=== PATIENT | female | born 2000 | race Asian ===

== ENCOUNTER 2024-09-29 08:11 | Outpatient (REF) | payer OTHER, SELFPAY ==
--- NOTE | ~2024-09-29 | US_ITS ---
EXAMINATION: US PELVIS CLINICAL INFORMATION: Heavy menstruation. Lower abdominal pain. COMPARISON: None available. TECHNIQUE: Ultrasound of the pelvis is performed using both transabdominal and transvaginal transducers along with Doppler. Transvaginal imaging is performed due to inadequate visualization transabdominally. FINDINGS: Uterus: The uterus is anteverted , anteflexed and measures 7.7 x 3.7 x 4.1 cm. The double wall endometrial thickness is 0.64 cm. The uterus is smooth in contour and has normal myometrial echogenicity. No visible fibroid. Adnexa: Both ovaries are visualized. There is normal color flow to the adnexa. There is no ovarian torsion. There is no pelvic ascites or fluid collection. Right ovary measures 2.8 x 1.8 x 1.9 cm. Volume 5.0 mL. No focal lesion seen Left ovary measures 2.4 x 1.2 x 2.5 cm. Volume 3.8 mL . There is anechoic cyst measuring 2.3 x 2.1 x 1.9 cm. There is no free fluid in cul-de-sac. US/US pelvic and transvaginal IMPRESSION: Unremarkable uterus and right ovary. Simple cyst left ovary. Electronically signed by: Jayson Barnett MD 09/29/2024 04:13 PM EST
== END 2024-09-29 08:12 | disposition home or self-care (01) ==
LOC: HO.UMASIMG 08:11
PROVIDERS: Visit Provider Emergency Medicine
DX: K64.9 Unspecified hemorrhoids (principal); K59.00 Constipation, unspecified
CPT/HCPCS: 76830; 76856

== ENCOUNTER → 2024-09-29 14:00 | Outpatient (BNV) | payer OTHER, SELFPAY | PROVIDERS: Visit Provider Radiology Diagnostic Radiology | DX: N92.0 Excessive and frequent menstruation with regular cycle (principal) | CPT/HCPCS: 76830; 76856 ==